=== PATIENT | male | born 1955 | race Hispanic/Latino ===

== ENCOUNTER 2018-07-26 19:08 | Emergency (ER) | payer BC ==
--- NOTE | 2018-07-26 20:33 | RAD REPORT ---
EXAM DESCRIPTION: RAD - Chest Single View - 07/26/2018 8:17 pm CLINICAL HISTORY: dizziness Chest pain. COMPARISON: Chest Pa And Lat (2 Views) dated 12/14/2016 FINDINGS: Portable technique limits examination quality. The lungs are grossly clear. The heart is normal in size. No displaced fractures. IMPRESSION: No acute intrathoracic process suspected.
[2018-07-26 20:43] LABS: Absolute Lymphocytes (CBC) 4.2 K/uL (0.7-4.9); Absolute Monocytes 0.9 K/uL (0.1-1.3); Absolute Neutrophil 6.2 K/uL (1.8-8.0); Basophils % 0.3 % (0-1.3); Eosinophils % 6.7 % (0-4.4); Hematocrit 42.3 % (39.6-49.0); Lymphocytes % 34.3 % (15.3-44.8); MCH 30.5 pg (27.0-35.0); MCV 89.5 fL (80-100); MPV 7.1 fL (7.6-11.3); Monocytes % 7.3 % (3.3-12.3); RBC Red Blood Cell Count 4.73 M/uL (4.33-5.43)
[2018-07-26 20:44] LABS: Protime INR 0.97
--- NOTE | 2018-07-26 20:48 | RAD REPORT ---
EXAM DESCRIPTION: CT - Head Brain Wo Cont - 07/26/2018 8:38 pm CLINICAL HISTORY: DIZZINESS Headache, drowsiness COMPARISON: No comparisons TECHNIQUE: All CT scans are performed using dose optimization technique as appropriate and may inclu de automated exposure control or mA/KV adjustment according to patient size. FINDINGS: No intracranial hemorrhage, hydrocephalus or extra-axial fluid collection.No areas of brai n edema or evidence of midline shift. The paranasal sinuses and mastoids are clear except for minimal mucosal thickening of the ethmoid air cells. The calvarium is intact. IMPRESSION: No acute intracranial abnormality.
[2018-07-26 21:00] LABS: ALT/SGPT 27 U/L (12-78); AST/SGOT 19 U/L (15-37); Albumin 3.7 g/dL (3.4-5.0); Alkaline Phosphatase 90 U/L (45-117); BUN Blood Urea Nitrogen 17 mg/dL (7-18); Bicarbonate 26 mmol/L (21-32); Bilirubin Direct < 0.1 mg/dL (0-0.2); Bilirubin Total 0.2 mg/dL (0.2-1.0); Glucose Level 125 mg/dL (74-106); Magnesium 2.4 mg/dL (1.8-2.4); NT PRO-BNP 34 pg/mL (<125); Potassium 3.9 mmol/L (3.5-5.1); Sodium Level 140 mmol/L (136-145); Troponin (Emerg Dept Use Only) < 0.02 ng/mL (0.0-0.045)
[2018-07-27] MEDS ORDERED: NA CHLORIDE 0.9% 1,000 ML ONE (00:08)
[2018-07-27 01:41] LABS: Potassium 3.8 mmol/L (3.5-5.1)
--- NOTE | 2018-07-27 02:57 | ER ---
Nurse's Notes [facility] Name: Aditya Bautista Age: 63 yrs Sex: Male : 1955 Arrival Date: 07/26/2018 Time: 19:15 Bed 13 Private MD: Diagnosis: Dehydration;Other peripheral vertigo, unspecified ear Presentation: 07/26 19:20 Presenting complaint: Patient states: "I've had vertigo for a long time, it comes and aj1 goes, but usually I can clean my ears real good and it takes care of it, but I did that real good, but still theres dizziness. It started a week ago and its been off and on" Denies pain, denies syncope, denies CP, denies head injury. Transition of care: patient was not received from another setting of care. Onset of symptoms was July 19, 2018. Risk Assessment: Do you want to hurt yourself or someone else? Patient reports no desire to harm self or others. Initial Sepsis Screen: Does the patient meet any 2 criteria? No. Patient's initial sepsis screen is negative. Does the patient have a suspected source of infection? No. Patient's initial sepsis screen is negative. Care prior to arrival: None. 19:20 Method Of Arrival: Ambulatory aj1 19:20 Acuity: JOSH 3 aj1 Triage Assessment: 19:24 General: Appears in no apparent distress. comfortable, Behavior is calm, cooperative, aj1 appropriate for age. Pain: Denies pain. Neuro: Level of Consciousness is awake, alert, obeys commands. Neuro: Reports dizziness, for the past week, that is intermittent. Cardiovascular: Patient's skin is warm and dry. Respiratory: Airway is patent Respiratory effort is even, unlabored, Respiratory pattern is regular, symmetrical. Historical: - Allergies: 19:24 No Known Allergies; aj1 - Home Meds: 19:24 lisinopril 10 mg Oral tab 1 tab once daily [Active]; atorvastatin 10 mg oral tab 1 tab aj1 once daily [Active]; aspirin 81 mg Oral chew 1 tab once daily [Active]; - PMHx: 19:24 Hypertension; Hyperlipidemia; aj1 - Immunization history:: Flu vaccine is not up to date. - Social history:: Smoking status: Patient uses tobacco products, smokes one-half pack cigarettes per day. - Ebola Screening: : Patient denies travel to an Ebola-affected area in the 21 days before illness onset. Screenin:35 Abuse screen: Denies threats or abuse. Nutritional screening: No deficits noted. jb4 Tuberculosis screening: No symptoms or risk factors identified. Fall Risk IV access (20 points). Assessment: 20:15 General: Appears in no apparent distress. comfortable, Behavior is calm, cooperative, jb4 appropriate for age. Pain: Denies pain. Neuro: Level of Consciousness is awake, alert, obeys commands, Oriented to person, place, time, situation. Cardiovascular: Patient's skin is warm and dry. Rhythm is sinus rhythm. Respiratory: Airway is patent Respiratory effort is even, unlabored, Respiratory pattern is regular, symmetrical. GI: No signs and/or symptoms were reported involving the gastrointestinal system. : No signs and/or symptoms were reported regarding the genitourinary system. EENT: No signs and/or symptoms were reported regarding the EENT system. Derm: Skin is intact, Skin is pink, warm \\T\\ dry. Musculoskeletal: Circulation, motion, and sensation intact. 21:13 Reassessment: Patient appears in no apparent distress at this time. Patient and/or jb4 family updated on plan of care and expected duration. Pain level reassessed. Patient is alert, oriented x 3, equal unlabored respirations, skin warm/dry/pink. 22:20 Reassessment: Patient appears in no apparent distress at this time. Patient and/or jb4 family updated on plan of care and expected duration. Pain level reassessed. Patient is alert, oriented x 3, equal unlabored respirations, skin warm/dry/pink. 23:14 Reassessment: Patient appears in no apparent distress at this time. Patient and/or jb4 family updated on plan of care and expected duration. Pain level reassessed. Patient is alert, oriented x 3, equal unlabored respirations, skin warm/dry/pink. 07/27 00:39 Reassessment: Patient appears in no apparent distress at this time. Patient and/or jb4 family updated on plan of care and expected duration. Pain level reassessed. Patient is alert, oriented x 3, equal unlabored respirations, skin warm/dry/pink. 01:27 Reassessment: Patient appears in no apparent distress at this time. Patient and/or jb4 family updated on plan of care and expected duration. Pain level reassessed. Patient is alert, oriented x 3, equal unlabored respirations, skin warm/dry/pink. 02:35 Reassessment: Patient appears in no apparent distress at this time. Patient and/or jb4 family updated on plan of care and expected duration. Pain level reassessed. Patient is alert, oriented x 3, equal unlabored respirations, skin warm/dry/pink. 03:49 Reassessment: Patient appears in no apparent distress at this time. Patient and/or jb4 family updated on plan of care and expected duration. Pain level reassessed. Patient is alert, oriented x 3, equal unlabored respirations, skin warm/dry/pink. Vital Signs: 07/26 19:24 BP 174 / 98; Pulse 83; Resp 18; Temp 97.6; Pulse Ox 96% on R/A; Weight 88.45 kg (R); aj1 Height 5 ft. 10 in. (177.80 cm) (R); Pain 0/10; 21:04 BP 136 / 79; Pulse 80; Resp 16; Pulse Ox 98% on R/A; mt 22:03 BP 126 / 80; Pulse 76; Resp 18; Pulse Ox 99% on R/A; mt 23:14 BP 134 / 90; Pulse 66; Resp 16; Pulse Ox 98% on R/A; jb4 07/27 00:30 BP 148 / 89; Pulse 64; Resp 16; Pulse Ox 100% on R/A; jb4 01:27 BP 118 / 73; Pulse 70; Resp 16; Pulse Ox 96% on R/A; jb4 02:35 BP 117 / 70; Pulse 64; Resp 19; Pulse Ox 100% on R/A; jb4 03:49 BP 124 / 88; Pulse 86; Resp 16; Pulse Ox 100% on R/A; jb4 07/26 19:24 Body Mass Index 27.98 (88.45 kg, 177.80 cm) aj1 ED Course: 07/26 19:15 Patient arrived in ED. ds1 19:22 Triage completed. aj1 19:24 Arm band placed on. aj1 19:25 Patient placed in waiting room, Patient notified of wait time. aj1 20:00 Patient has correct armband on for positive identification. Placed in gown. Bed in low jb4 position. Call light in reach. Side rails up X 1. outsole compressor on. Pulse ox on. NIBP on. 20:00 Initial lab(s) drawn, by ED staff, sent to lab. Inserted saline lock: 20 gauge in right jb4 antecubital area, using aseptic technique. Blood collected. 20:02 Scott Reagan MD is Attending Physician. tw4 20:11 Sudeep Nair, RN is Primary Nurse. jb4 20:16 XRAY Chest (1 view) In Process Unspecified. EDMS 20:[address] via wheelchair. nj 20:38 CT completed. Patient tolerated procedure well. Patient moved back from CT. nj 20:38 CT Head Brain wo Cont In Process Unspecified. EDMS 23:15 Door closed. Warm blanket given. jb4 07/27 03:49 No provider procedures requiring assistance completed. jb4 03:49 IV discontinued, intact, bleeding controlled. jb4 Administered Medications: 00:20 Drug: NS 0.9% 1000 ml Route: IV; Rate: 1000 ml; Site: right antecubital; jb4 01:00 Follow up: Response: No adverse reaction; IV Status: Completed infusion jb4 Outcome: 02:57 Discharge ordered by MD. tw4 03:49 Discharged to home ambulatory, with significant other. jb4 03:49 Condition: stable 03:49 Discharge instructions given to patient, significant other, Instructed on discharge instructions, follow up and referral plans. medication usage, Demonstrated understanding of instructions, follow-up care, medications, Prescriptions given X 1. 03:52 Patient left the ED. jb4 Signatures: Dispatcher [employer] EDCatina Ware RN RN 1 Yulissa Chandler [facility] Sudeep Nair RN RN jb4 Jarad Connolly [facility] Scott Reagan MD MD tw4
--- NOTE | 2018-07-27 02:57 | EDPHYS ---
Physician Documentation [facility] Name: Aditya Bautista Age: 63 yrs Sex: Male : 1955 Arrival Date: 07/26/2018 Time: 19:15 Bed 13 Private MD: ED Physician Scott Reagan HPI: 07/27 03:06 This 63 yrs old Male presents to ER via Ambulatory with complaints of tw4 Dizziness. 03:06 The patient presents with sense of spinning, vertigo. Onset: The symptoms/episode tw4 began/occurred today. Context: occurred. Modifying factors: The symptoms are alleviated by nothing, the symptoms are aggravated by changing position. Associated signs and symptoms: The patient has no apparent associated signs or symptoms. Severity of symptoms: At their worst the symptoms were moderate in the emergency department the symptoms are unchanged. The patient has not experienced similar symptoms in the past. Historical: - Allergies: 07/26 19:24 No Known Allergies; aj1 - Home Meds: 19:24 lisinopril 10 mg Oral tab 1 tab once daily [Active]; atorvastatin 10 mg oral tab 1 tab aj1 once daily [Active]; aspirin 81 mg Oral chew 1 tab once daily [Active]; - PMHx: 19:24 Hypertension; Hyperlipidemia; aj1 - Immunization history:: Flu vaccine is not up to date. - Social history:: Smoking status: Patient uses tobacco products, smokes one-half pack cigarettes per day. - Ebola Screening: : Patient denies travel to an Ebola-affected area in the 21 days before illness onset. ROS: 07/27 03:06 Constitutional: Negative for fever, chills, and weight loss, Cardiovascular: Negative tw4 for chest pain, palpitations, and edema, Respiratory: Negative for shortness of breath, cough, wheezing, and pleuritic chest pain, Abdomen/GI: Negative for abdominal pain, nausea, vomiting, diarrhea, and constipation, Back: Negative for injury and pain, MS/Extremity: Negative for injury and deformity, Skin: Negative for injury, rash, and discoloration, Neuro: Negative for headache, weakness, numbness, tingling, and seizure. Neuro: Positive for dizziness, Negative for altered mental status, gait disturbance, headache, hearing loss, seizure activity, speech changes, syncope, near syncope, tinnitus, visual changes. Exam: 03:06 Constitutional: This is a well developed, well nourished patient who is awake, alert, tw4 and in no acute distress. Head/Face: Normocephalic, atraumatic. Chest/axilla: Normal chest wall appearance and motion. Nontender with no deformity. No lesions are appreciated. Cardiovascular: Regular rate and rhythm with a normal S1 and S2. No gallops, murmurs, or rubs. Normal PMI, no JVD. No pulse deficits. Respiratory: Lungs have equal breath sounds bilaterally, clear to auscultation and percussion. No rales, rhonchi or wheezes noted. No increased work of breathing, no retractions or nasal flaring. Abdomen/GI: Soft, non-tender, with normal bowel sounds. No distension or tympany. No guarding or rebound. No evidence of tenderness throughout. Back: No spinal tenderness. No costovertebral tenderness. Full range of motion. MS/ Extremity: Pulses equal, no cyanosis. Neurovascular intact. Full, normal range of motion. Neuro: Awake and alert, GCS 15, oriented to person, place, time, and situation. Cranial nerves II-XII grossly intact. Motor strength 5/5 in all extremities. Sensory grossly intact. Cerebellar exam normal. Normal gait. Vital Signs: 07/26 19:24 BP 174 / 98; Pulse 83; Resp 18; Temp 97.6; Pulse Ox 96% on R/A; Weight 88.45 kg (R); aj1 Height 5 ft. 10 in. (177.80 cm) (R); Pain 0/10; 21:04 BP 136 / 79; Pulse 80; Resp 16; Pulse Ox 98% on R/A; mt 22:03 BP 126 / 80; Pulse 76; Resp 18; Pulse Ox 99% on R/A; mt 23:14 BP 134 / 90; Pulse 66; Resp 16; Pulse Ox 98% on R/A; jb4 07/27 00:30 BP 148 / 89; Pulse 64; Resp 16; Pulse Ox 100% on R/A; jb4 01:27 BP 118 / 73; Pulse 70; Resp 16; Pulse Ox 96% on R/A; jb4 02:35 BP 117 / 70; Pulse 64; Resp 19; Pulse Ox 100% on R/A; jb4 03:49 BP 124 / 88; Pulse 86; Resp 16; Pulse Ox 100% on R/A; jb4 07/26 19:24 Body Mass Index 27.98 (88.45 kg, 177.80 cm) aj1 MDM: 07/26 20:02 Patient medically screened. 07/27 03:06 Differential diagnosis: cardiac arrhythmia, CVA, generalized weakness. Data reviewed: tw4 vital signs, nurses notes. Counseling: I had a detailed discussion with the patient and/or guardian regarding: the historical points, exam findings, and any diagnostic results supporting the discharge/admit diagnosis, lab results. Medication response: IVF hydration NS. Response to treatment: the patient's symptoms have resolved after treatment, and as a result, I will discharge patient. Special discussion: I discussed with the patient/guardian in detail that at this point there is no indication for admission to the hospital. It is understood, however, that if the symptoms persist or worsen the patient needs to return immediately for re-evaluation. ED course: repeat creatinine normal after IVF hydration. Will have pt followup as an outpatient . 07/26 20: Order name: Basic Metabolic Panel; Complete Time: 22:00 07/26 22:00 Interpretation: Normal except: CL 108; GLUC 125; CRE 1.50. 07/26 20:02 Order name: CBC with Diff; Complete Time: 22:00 07/26 22:00 Interpretation: Normal except: WBC 12.1; MPV 7.1. 07/26 20:02 Order name: LFT's; Complete Time: 22:00 07/26 22:00 Interpretation: Within normal limits. 07/26 20: Order name: Magnesium; Complete Time: 22:00 07/26 22:00 Interpretation: Within normal limits: MG 2.4. 07/26 20:02 Order name: NT PRO-BNP; Complete Time: 22:00 07/26 22:00 Interpretation: NT PRO-BNP 34. 07/26 20:02 Order name: PT-INR; Complete Time: 22:00 07/26 22:00 Interpretation: Within normal limits: PT 11.5. 07/26 20:02 Order name: Troponin (emerg Dept Use Only); Complete Time: 22:00 07/26 22:01 Interpretation: Within normal limits: TROPED < 0.02. 4 07/26 20:02 Order name: XRAY Chest (1 view); Complete Time: 22:01 4 07/26 22:01 Interpretation: No acute disease. 07/26 20:02 Order name: EKG; Complete Time: 20:04 tw4 07/26 20:02 Order name: Cardiac monitoring; Complete Time: 20:23 4 07/26 20:23 Order name: CT Head Brain wo Cont; Complete Time: 22:01 tw4 07/26 22:01 Interpretation: No acute disease. 4 07/27 01:00 Order name: BMP [facility] 07/27 01:07 Order name: Basic Metabolic Panel; Complete Time: 02:36 EDOR 07/26 20:02 Order name: EKG - Nurse/Tech; Complete Time: 20:23 4 07/26 20:02 Order name: IV Saline Lock; Complete Time: 20:39 4 07/26 20:02 Order name: Labs collected and sent; Complete Time: 20:39 [facility] 07/26 20:02 Order name: O2 Per Protocol; Complete Time: 20:12 [facility] 07/26 20:02 Order name: O2 Sat Monitoring; Complete Time: 20:12 [facility] Administered Medications: 00:20 Drug: NS 0.9% 1000 ml Route: IV; Rate: 1000 ml; Site: right antecubital; [facility] 01:00 Follow up: Response: No adverse reaction; IV Status: Completed infusion 4 Disposition: 07/27/18 02:57 Discharged to Home. Impression: Dehydration, Other peripheral vertigo, unspecified ear. - Condition is Stable. - Discharge Instructions: Benign Positional Vertigo, Dehydration, Elderly, Vertigo. - Prescriptions for Meclizine 25 mg Oral Tablet - take 1 tablet by ORAL route every 8 hours As needed; 30 tablet. - Medication Reconciliation Form, Thank You Letter, Antibiotic Education, Prescription Opioid Use form. - Follow up: Private Physician; When: Upon discharge from the Emergency Department; Reason: Recheck today's complaints, Continuance of care. - Problem is new. - Symptoms have improved. Signatures: Dispatcher [employer] EDCatina Ware RN RN aj1 Sudeep Nair RN RN jb4 Scott Reagan MD MD tw4 Corrections: (The following items were deleted from the chart) 03:52 02:57 07/27/2018 02:57 Discharged to Home. Impression: Dehydration; Other peripheral jb4 vertigo, unspecified ear. Condition is Stable. Forms are Medication Reconciliation Form, Thank You Letter, Antibiotic Education, Prescription Opioid Use. Follow up: Private Physician; When: Upon discharge from the Emergency Department; Reason: Recheck today's complaints, Continuance of care. Problem is new. Symptoms have improved. tw4
--- NOTE | 2018-07-27 05:12 | EKG ---
Test Date: 2018-07-26 Test Time: 20:18:46 Drier Tender Naphthalene: ARIE MEASUREMENT RESULTS: Intervals: Rate: 69 MI: 156 QRSD: 88 QT: 374 QTc: 400 [place]: P: 58 MI: 156 QRS: 84 T: 72 INTERPRETIVE STATEMENTS: Normal sinus rhythm Normal ECG No previous ECG available for comparison Electronically Signed On 07-27-18 05:12:23 SORT LINE by Felton Flores
== END 2018-07-27 03:52 | disposition home or self-care (01) ==
LOC: ER 19:08
DX: E86.0 Dehydration (principal); H81.399 Other peripheral vertigo, unspecified ear; I10 Essential (primary) hypertension; E78.5 Hyperlipidemia, unspecified; F17.210 Nicotine dependence, cigarettes, uncomplicated; Z79.82 Long term (current) use of aspirin
CPT/HCPCS: 36415; 70450; 71045; 80048; 80076; 83735; 83880; 84484; 85025; 85610; 93005; 96360; 99285; J7030

== ENCOUNTER 2024-09-07 07:22 | Day surgery (SDC) | payer OTHER, BC ==
[2024-09-06 10:38] LABS: Absolute Basophils 0.1 K/uL (0-0.5); Absolute Eosinophils 0.3 K/uL (0-0.5); Absolute Lymphocytes (CBC) 3.5 K/uL (0.7-4.9); Absolute Monocytes 0.7 K/uL (0.1-1.3); Absolute Neutrophil 5.2 K/uL (1.8-8.0); Basophils % 1.1 % (0-1.3); Hematocrit 45.7 % (39.6-49.0); Hemoglobin 15.5 g/dL (13.6-17.9); Lymphocytes % 36.1 % (15.3-44.8); MCH 29.6 pg (27.0-35.0); MCHC 33.9 g/dL (32.0-36.0); MCV 87.3 fL (80-100); MPV 6.9 fL (7.6-11.3); Neutrophils % 52.8 % (41.7-73.7); Nucleated Red Blood Cells % 0.1 % (0-0); Platelets 377 thou/uL (152-406); RBC Red Blood Cell Count 5.23 M/uL (4.33-5.43); Red Cell Distribution Width 14.4 % (12.1-15.2)
[2024-09-06 10:52] LABS: Anion Gap 7.2 mEq/L (5.0-15.0); Potassium 4.2 mEq/L (3.5-5.1)
[2024-09-07] MEDS: Ringers Lactate 1,000 ML IV ONE (07:45)
[2024-09-07] MEDS ORDERED: propofoL 200 MG/20 ML VIAL IV ONE ×2 (08:28→08:29)
[2024-09-07] MEDS ORDERED: LIDOCAINE 1% MPF 5 ML VIAL ONE (08:29)
[2024-09-07 09:43] VITALS: BP 146/87; TEMP 97; O2SAT 99
--- NOTE | 2024-09-07 15:10 | EKG ---
Test Date: 2024-09-06 Test Time: 11:39:20 Window Assembler: JONATHAN MEASUREMENT RESULTS: Intervals: Rate: 82 SD: 168 QRSD: 84 QT: 354 QTc: 413 [place]: P: 68 SD: 168 QRS: 84 T: 74 INTERPRETIVE STATEMENTS: Normal sinus rhythm Normal ECG Compared to ECG 07/26/2018 20:18:46 No significant changes Electronically Signed On 09-07-24 15:06:47 [employer] by Ab Holly
== END 2024-09-07 09:43 | disposition home or self-care (01) ==
LOC: OR 07:22
PROVIDERS: ATTEND Surgery
PROC: 0DBN8ZX Excision of Sigmoid Colon, Via Natural or Artificial Opening Endoscopic, Diagnostic (ICD-10-PCS; principal; 2024-09-07 08:45)
DX: Z12.11 Encounter for screening for malignant neoplasm of colon (principal); N42.9 Disorder of prostate, unspecified; K57.30 Diverticulosis of large intestine without perforation or abscess without bleeding; K64.8 Other hemorrhoids; K63.5 Polyp of colon
CPT/HCPCS: 93005; 85025; 80048; 36415; 88305; 45380; J2704; J2003; J7120